=== PATIENT | male | born 2000 | race African-American/Black ===

== ENCOUNTER 2021-05-18 14:47 | Emergency (ER) | payer MEDICAID, OTHER ==
[~2021-05-18] VITALS: Ht 167.6 cm; Wt 62.1 kg
[2021-05-18 15:29] LABS: Basophils # (auto) 0 10 ^3/uL (0-0.2); Basophils % (auto) 0.7 % (0.0-2.0); Eosinophils # (auto) 0.4 10 ^3/uL (0-0.8); Eosinophils % (auto) 8.2 % (0.0-7.0); Hemoglobin 14.9 g/dL (13.5-17.5); Lymphocytes # (auto) 1.3 10 ^3/uL (0.4-5.4); Lymphocytes % (auto) 23.4 % (10.0-50.0); Mean Corpuscular Hemoglobin 28.6 pg (28.0-32.0); Mean Corpuscular Volume 84.3 fL (80.0-100.0); Monocytes # (auto) 0.8 10 ^3/uL (0-1.3); Monocytes % (auto) 15.6 % (0.0-12.0); Neutrophils # (auto) 2.8 10 ^3/uL (1.6-8.6); Neutrophils % (auto) 52.1 % (37.0-80.0); Nucleated Red Blood Cells % 0.1 %; Red Blood Cells 5.22 10^6/uL (4.5-5.90); Red Cell Distribution Width 13.9 % (11.8-14.3); White Blood Cell 5.4 10^3/uL (4.4-10.8)
[2021-05-18 15:48] LABS: Albumin 3.8 g/dL (3.4-5.0); Calcium 8.8 mg/dL (8.5-10.1); Potassium 3.9 mmol/L (3.5-5.1)
[2021-05-18 15:52] LABS: BUN/Creatinine Ratio 8.4; Bilirubin, Total 0.4 mg/dL (0.2-1.0); Total Protein 8.6 g/dL (6.4-8.2)
[2021-05-18 16:45] VITALS: BP 111/78
== END 2021-05-18 17:05 | disposition home or self-care (01) ==
LOC: ER 14:47
DX: R10.84 Generalized abdominal pain (principal); F12.10 Cannabis abuse, uncomplicated; Z88.0 Allergy status to penicillin
CPT/HCPCS: 36415; 74176; 80053; 84484; 85025

== ENCOUNTER 2024-09-29 19:45 | Emergency (ER) | payer MEDICAID ==
[~2024-09-29] VITALS: Ht 170.2 cm; Wt 64.4 kg
--- NOTE | 2024-09-29 20:08 | ED.PDOC ---
History of Present Illness HPI Comments 24 y/o M, with a history of anxiety, HTN, ulcerative colitis, and tobacco cigarette use, presents with c/o palpitations, today. Patient endorses on ongoing palpitation episodes all day since initial, unprovoked and sudden onset, this morning, at around 0200. He reports on having unexplained palpitation episo shashank, intermittently, for the past 2x months amidst multiple ED hospital visits where workups were done including chest x-rays, EKGs, and blood tests that were all unremarkable. Patient states on "heart pounding" sensations being different to when he had anxiety attacks in the past. Patient informs of being seen and discharge, with no significant findings made, at [facility], earlier, today. He reports no recent stressors, strenuous activities, sick contact, travel, or further relevant information. Patient denies any chest pain, shortness of breath, fever, chills, or other associated symptoms at this time. No caffeine or other stimulant use. No drug use. Time Seen by MD: 20:00 Primary Care Provider: AREN Reviewed Notes: Nurses Notes, Medications, Allergies Allergies: Coded Allergies: Penicillins (Verified Allergy, Unknown, 05/18/21) Information Source: Patient Mode of Arrival: Ambulatory Severity: Moderate Timing: Hours Duration: Since onset Prehospital treatment: None Past Medical History PAST MEDICAL HISTORY: Anxiety, HTN Past Medical History (Other): ulcerative colitis Surgical History (Other): colonoscopy Family History Family History: Reviewed,noncontributory to illness Social History Smoker: Cigarettes, Other Alcohol: Denies ETOH Use Drugs: Denies Drug Use Lives In: Home All Other Systems: Reviewed and Negative (Comprehensive systems review obtained and negative except for what is stated in the HPI.) Physical Exam General Appearance: No Apparent Distress, Other (Patient appears to be mildly anxious, foot shaking throughout exam, avoiding eye contact) HEENT: Normal ENT Inspection, Pharynx Normal, TMs Normal Neck: Full Range of Motion, Non-Tender, Normal, Normal Inspection Respiratory: Chest Non-Tender, Lungs Clear, No Accessory Muscle Use, No Respiratory Distress, Normal Breath Sounds Cardiovascular: No Edema, No Murmur, No Gallop, Normal Peripheral Pulses, Regular Rate/Rhythm Breast Exam: Deferred Gastrointestinal: No Organomegaly, Non Tender, No Pulsatile Mass, Normal Bowel Sounds, Soft Genitalia: Deferred Pelvic: Deferred Rectal: Deferred Extremities: No calf tenderness, Normal capillary refill, Normal inspection, Normal range of motion, Non-tender, No pedal edema Musculoskeletal : Apperance: Normal Neurologic: Alert, center lead consultant II-XII nml as Tested, No Motor Deficits, Normal Affect, Normal Mood, No Sensory Deficits Cerebellar Function: NOT DONE Reflexes: NOT DONE Skin: Dry, Normal Color, Warm Lymphatic: No Adenopathy Was a procedure done? Was a procedure done?: No EKG EKG : Pulse Rate (adult): 91 [place]: Normal Cardiac Rhythm: NSR Block: None Hypertrophy: None ST: Normal Differential Dx Considerations may include: anxiety, panic attack, electrolyte abnormality, hyperthyroidism, ACS, arrhythmia, pericarditis, myocarditis, PE X-Ray, Labs, Meds, VS Vital Signs Date Time Temp Pulse Resp B/P (MAP) Pulse Ox O2 Delivery O2 Flow Rate FiO2 09/29/24 20:08 91 09/29/24 19:45 98.1 96 16 125/80 (95) 97 98.1 Lab Test 09/29/24 20:50 09/29/24 19:52 Range/Units Troponin I High Sensitivity Pending < 3 L </=54 ng/L White Blood Count 4.2 L 4.4-10.8 10^3/uL Red Blood Count 5.37 4.5-5.90 10^6/uL Hemoglobin 13.6 13.5-17.5 g/dL Hematocrit 42.2 41.0-53.0 % Mean Corpuscular Volume 78.7 L 80.0-100.0 fL Mean Corpuscular Hemoglobin 25.4 L 28.0-32.0 pg Mean Corpuscular Hemoglobin Concent 32.2 32.0-36.0 g/dL Red Cell Distribution Width 14.6 H 11.8-14.3 % Platelet Count 257 140-450 10^3/uL Mean Platelet Volume 9.1 6.9-10.8 fL Neutrophils (%) (Auto) 40.9 37.0-80.0 % Lymphocytes (%) (Auto) 29.5 10.0-50.0 % Monocytes (%) (Auto) 18.3 H 0.0-12.0 % Eosinophils (%) (Auto) 10.5 H 0.0-7.0 % Basophils (%) (Auto) 0.8 0.0-2.0 % Neutrophils # (Auto) 1.7 1.6-8.6 10 ^3/uL Lymphocytes # (Auto) 1.2 0.4-5.4 10 ^3/uL Monocytes # (Auto) 0.8 0-1.3 10 ^3/uL Eosinophils # (Auto) 0.4 0-0.8 10 ^3/uL Basophils # (Auto) 0 0-0.2 10 ^3/uL Nucleated Red Blood Cells 0.1 % Sodium Level 136 136-145 mmol/L Potassium Level 3.7 3.5-5.1 mmol/L Chloride Level 102 98-107 mmol/L Carbon Dioxide Level 28 20-31 mmol/L Anion Gap 6 5-15 Blood Urea Nitrogen 11 9-23 mg/dL Creatinine 1.25 0.700-1.30 mg/dL Glomerular Filtration Rate Calc 83 >90 mL/min BUN/Creatinine Ratio 8.8 L 10.0-20.0 Serum Glucose 101 74-106 mg/dL Calcium Level 10.0 8.7-10.4 mg/dL Thyroid Stimulating Hormone (TSH) 0.74 0.55-4.78 uIU/mL X-Ray, Labs, Meds, VS Comment 24-year-old male with a history of anxiety here today with the complaints of palpitations/heart pounding sensation. Patient was seen at another outside hospital earlier today and had a chest x-ray, EKG and blood work done that was unremarkable. Patient was states that he was here today for a 2nd opinion and because he was worried that his heart is beating too quickly. Vital signs stable, afebrile. Not tachycardic at any time during his time in this hospital. Physical exam as above with evidence of patient appearing anxious but otherwise unremarkable. No suicidal or homicidal thoughts. No hallucinations. No drug use. Doubt PE, PERC negative. Doubt ACS, negative troponin, EKG without evidence of ischemia, and patient overall young and healthy and without any complaints of chest pain. TSH normal, doubt hyperthyroidism. Hemoglobin normal, doubt anemia. I had an extensive discussion with the patient lasting over 30 minutes regarding his concerns about his heart. Patient finally revealed to me that he has been diagnosed with anxiety previously and was prescribed medications but he has not been taking them because he was worried about how they will make him feel. I encouraged the patient to discuss this further with his primary care provider and psychiatrist and gave him some positive reassurance which he was very appreciative of. Patient once again denied any suicidal or homicidal thoughts. Patient was discharged home with strict return precautions for any suicidal or homicidal thoughts, hallucinations, chest pain, numbness, weakness, nausea/vomiting, fevers, or any other new or concerning symptoms. Patient expressed understanding and was discharged home with his girlfriend in stable condition ambulating with a steady gait. Time of 1ST Reevaluation: 20:30 Reevaluation 1ST: Unchanged Time of 2ND Reevaluation: 21:09 Reevaluation 2ND: Resolved Patient Education/Counseling: Diagnosis, Treatment, Need For Follow Up Family Education/Counseling: No Family Present Additional Information Previous medical encounters reviewed: N/A The following tests were ordered, and results were reviewed by me: troponin, TSH levels, CBC, BMP, EKG Additional Information was gathered from interviewing the following independent historians: N/A I reviewed and agreed with the following test results read by other providers: N/A I discussed treatment and results with medical personnel and: Patient Departure 1 Departure Time of Disposition: 21:10 Impression: Primary Impression: Anxiety Additional Impression: Palpitations Disposition: 01 HOME / SELF CARE / HOMELESS Condition: Stable Discharged With: Significant Other Critical Care Note Critical Care Time?: No Stability Stability form required: No Heart Score Heart Score: Heart Score Response (Comments) Value History N/A 0 EKG N/A 0 Age N/A 0 Risk Factors N/A 0 Troponin N/A 0 Total 0 I personally scribed for SHANDA BLANCA MD ([email or web address]) on 09/29/24 at 20:08. Electronically submitted by Quinten Calzada ([email or web address]). SHANDA BLANCA MD Sep 29, 2024 20:08
[2024-09-29 20:21] LABS: Basophils # (auto) 0 10 ^3/uL (0-0.2); Basophils % (auto) 0.8 % (0.0-2.0); Chloride 102 mmol/L (98-107); Eosinophils # (auto) 0.4 10 ^3/uL (0-0.8); Eosinophils % (auto) 10.5 % (0.0-7.0); Hematocrit 42.2 % (41.0-53.0); Hemoglobin 13.6 g/dL (13.5-17.5); Lymphocytes # (auto) 1.2 10 ^3/uL (0.4-5.4); Lymphocytes % (auto) 29.5 % (10.0-50.0); Mean Corpuscular Hemoglobin 25.4 pg (28.0-32.0); Mean Corpuscular Hgb Conc. 32.2 g/dL (32.0-36.0); Mean Corpuscular Volume 78.7 fL (80.0-100.0); Monocytes # (auto) 0.8 10 ^3/uL (0-1.3); Monocytes % (auto) 18.3 % (0.0-12.0); Neutrophils # (auto) 1.7 10 ^3/uL (1.6-8.6); Neutrophils % (auto) 40.9 % (37.0-80.0); Nucleated Red Blood Cells % 0.1 %; Platelet Count (auto) 257 10^3/uL (140-450); Potassium 3.7 mmol/L (3.5-5.1); Red Blood Cells 5.37 10^6/uL (4.5-5.90); Red Cell Distribution Width 14.6 % (11.8-14.3); Sodium 136 mmol/L (136-145); White Blood Cell 4.2 10^3/uL (4.4-10.8)
[2024-09-29 20:22] LABS: Anion Gap 6 (5-15); Carbon Dioxide 28 mmol/L (20-31)
[2024-09-29 20:27] LABS: BUN/Creatinine Ratio 8.8 (10.0-20.0); Blood Urea Nitrogen 11 mg/dL (9-23); Glucose 101 mg/dL (74-106)
[2024-09-29 21:22] VITALS: BP 125/80; TEMP 98.1
[2024-09-29 21:23] VITALS: PULSE 96; RESP 16; O2SAT 97
--- NOTE | 2024-10-02 14:46 | ECG ---
[facility] Test Date: 2024-09-29 Test Time: 19:49:53 Pat Name: DARLENE MORALES Department: ER Room: Gender: M [employer] Workflow Consultant: GORDON : 2000 Requested By: ABDIRASHID SERRANO Order Number: [id number] Reading MD: Measurements Intervals [place] Rate: 91 P: 74 MD: 150 QRS: 93 QRSD: 86 T: 48 QT: 336 QTc: 414 Interpretive Statements Sinus rhythm Borderline right axis deviation Please click the below link to view image of tracing.
== END 2024-09-29 21:22 | disposition home or self-care (01) ==
LOC: ER 19:45
DX: F41.9 Anxiety disorder, unspecified (principal); R00.2 Palpitations; I10 Essential (primary) hypertension; K51.90 Ulcerative colitis, unspecified, without complications; F17.210 Nicotine dependence, cigarettes, uncomplicated; Z88.0 Allergy status to penicillin
CPT/HCPCS: 36415; 80048; 84443; 84484; 85025; 93005